=== PATIENT | male | born 1995 | race Caucasian/White ===

== ENCOUNTER 2023-01-07 13:53 | Emergency (ER) | payer OTHER, SELFPAY ==
[2023-01-07 13:54] VITALS: BP 158/77; PULSE 111; RESP 16; TEMP 36.6; O2SAT 97; BMI 37.5
--- NOTE | 2023-01-07 14:24 | RAD_ITS ---
EXAM: XR LEFT SHOULDER COMPLETE, 2 OR MORE VIEWS CLINICAL INDICATION: injury TECHNIQUE: Two or more views of the left shoulder. COMPARISON: No relevant prior studies available. FINDINGS: BONES/JOINTS: No acute abnormality. SOFT TISSUES: Normal. No soft tissue swelling or gas. No radiopaque foreign body. RAD/Shoulder min 2 Views IMPRESSION: Intact left shoulder. Electronically Signed: Sachin Theodore MD at 15:35 EDT ,
--- NOTE | 2023-01-07 14:24 | RAD_ITS ---
EXAM: XR LEFT KNEE, 3 VIEWS CLINICAL INDICATION: injury TECHNIQUE: Three views of the left knee. COMPARISON: No relevant prior studies available. FINDINGS: BONES/JOINTS: Joint effusion distends the suprapatella bursa. No fracture or subluxation. No joint space narrowing. SOFT TISSUES: No soft tissue swelling. No radiopaque foreign body. RAD/Knee 3 Views IMPRESSION: Joint effusion. Electronically Signed: Sachin Theodore MD at 15:35 EDT ,
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
[2023-01-07] MEDS: Ibuprofen 600 MG Tablet PO (15:05)
== END 2023-01-07 16:06 | disposition home or self-care (01) ==
PROVIDERS: Emergency Provider Emergency Medicine; Visit Provider Emergency Medicine
DX: M25.512 Pain in left shoulder (principal); M25.562 Pain in left knee; V86.55XA Driver of 3- or 4- wheeled all-terrain vehicle (ATV) injured in nontraffic accident, initial encounter
CPT/HCPCS: 73030; 73562; 99282